=== PATIENT | female | born 1945 | race Caucasian/White ===

== ENCOUNTER 2024-04-30 07:17 | Day surgery (SDC) | payer MEDICARE, OTHER, SELFPAY ==
[2024-04-26 15:18] VITALS: BMI 23.8
[2024-04-30] MEDS: LACTATED RINGERS 1000ML 1,000 ML 25 ML IV (08:00)
[2024-04-30 08:11] VITALS: BP 129/77; PULSE 65; RESP 18; TEMP 36.1; O2SAT 99
--- NOTE | 2024-04-30 08:42 | EXP.ANES.CKL ---
[facility] Disclaimer: The information contained in this section may have been updated after the patient was seen, as this information can be updated by other users. Medical History Thyroid disorder Depression Hyperlipidemia Surgical History History of tubal ligation History of breast biopsy History of knee surgery History of toe surgery Family History Other Family history of CVA Family history of cancer Family history of diabetes mellitus No significant family history Social History Smoking Status: Never smoker alcohol intake: never substance use type: denies use current occupational status: retired Travel in the last 8 weeks: None [facility] Anesthesia Checklist Patient Identification Patient Identification: Arm Band and Verbal (Name & ) Structural Data Admitted From: Home Planned Operative Procedure/s: Colonoscopy Consent for Planned Operative Procedure(s) Verified: Yes Verified Documents: Surgical Consent and History and Physical NPO Status Verified Time NPO: 02:30 (Prep/water) Additional verifications Anesthesia Reactions: No Airway Assessment Mallampati Score:: Class I C-Spine Mobility Assessed: Yes TMJ Mobility Assessed: Yes Dentition: Good Dentition Neurological Assessment Level of Consciousness: Awake Hx Seizures: No Numbness or tingling in extremities: No Anesthesia Plan Anesthesia Risk discussed: Yes Anesthesia Plan: Verified ASA Class: II Anesthesia Type: MAC
--- NOTE | 2024-04-30 08:55 | P.HP_ITS ---
History of Present Illness *Admission Date: 04/30/24 *Reason for visit:: Personal history of adenomatous colon polyps *History of present illness: Mrs. Jimenez is a 79-year-old female who is here for surveillance colonoscopy secondary to personal history of adenomatous colon polyps. Her father had colon cancer presumably in his 60s. The examination is deemed medically necessary for surveillance colonoscopy. The patient has been seen, interviewed and examined prior to the procedure by both myself and the anesthesia provider. [facility] Disclaimer: The information contained in this section may have been updated after the patient was seen, as this information can be updated by other users. Medical History Thyroid disorder Depression Hyperlipidemia Surgical History History of tubal ligation History of breast biopsy History of knee surgery History of toe surgery Family History Other Family history of CVA Family history of cancer Family history of diabetes mellitus No significant family history Social History (Updated 04/30/24 @ 08:42 by Chioma Bishop CRNA) Smoking Status: Never smoker alcohol intake: never substance use type: denies use current occupational status: retired Travel in the last 8 weeks: None Have you lived/traveled outside [place] in past 30 days?: No Contact w/someone who lives/traveled outside [place] past 30 days?: No Exposure to someone with infectious disease in past 14 days?: No Do you have a fever (greater than 100.4 F or 38 C)?: No Have you tested positive for COVID-19: No Exposed to someone with COVID-19 in past 14 days?: No Do you have a sore throat?: No Do you have a cough?: No Do you have any weakness?: No Are you experiencing any nausea/vomitting?: No Do you have any diarrhea?: No Are you experiencing any unusual bleeding?: No Do you have any muscle aches/pain?: No Do you have any abdominal pain?: No Are you experiencing loss of taste or smell?: No Review of Systems Review of Systems Review of systems (narrative): Negative *Cardiovascular Comments: Negative *Gastrointestinal Comments: Negative *Genitourinary Comments: Negative *Musculoskeletal Comments: Negative *Neurologic Comments: Negative Meds Home Medications and Allergies Home Medications ?Medication ?Instructions ?Recorded ?Confirmed ?Type atorvastatin 10 mg tablet 10 mg PO HS 04/26/24 04/26/24 History escitalopram oxalate 5 mg tablet 5 mg PO DAILY 04/26/24 04/26/24 History (Lexapro) methimazole 5 mg tablet 5 mg PO DAILY 04/26/24 04/26/24 History New Prescriptions to Start Prescriptions: Allergies Allergy/AdvReac Type Severity Reaction Status Date / Time erythromycin base Allergy Abdominal Verified 04/30/24 08:08 Pain shellfish derived AdvReac Hives Verified 04/26/24 15:07 Exam Data for Last 24 hours Vital signs and Labs for Last 24 Hours: Temp Pulse Resp BP Pulse Ox O2 Del Method 97.0 F L 65 18 129/77 99 Room Air 04/30/24 08:11 04/30/24 08:11 04/30/24 08:11 04/30/24 08:11 04/30/24 08:11 04/30/24 08:11 *Routine HEENT Exam Head: Present normocephalic Eye: Present EOMI and PERRL ENT: Present mucous membranes moist *Routine Neck Exam Neck: Present supple *Routine Respiratory Exam Respiratory: Present CTA bilaterally *Routine Cardiovascular Exam Cardiovascular: Present RRR *Routine Abdominal Exam Abdominal: Present soft and normoactive bowel sounds; Absent tenderness *Routine Rectal Exam Rectal:: deferred *Routine Genitalia Exam Genitalia:: deferred *Routine Extremities Exam Extremities: Absent cyanosis, clubbing or edema *Routine Skin Exam Skin: Present warm; Absent rash *Routine Neurological Exam Neurological: Present alert and oriented X3 Assessment and Plan *Assessment and plan (1) Personal history of adenomatous and serrated colon polyps: Status: Acute Category: Medical Code(s): Z86.0101 - Personal history of adenomatous and serrated colon polyps (2) Family history of colon cancer in father: Status: Acute Category: Medical Code(s): Z80.0 - Family history of malignant neoplasm of digestive organs Plan A/P: 1. Personal history of adenomatous colon polyps and family history is the preprocedural diagnosis. The patient will be anesthetized/sedated using MAC sedation. The patient has been seen and examined. Cardiac and lung assessment prior to the examination is stable. Proceed with planned surveillance colonoscopy
[2024-04-30 08:59] VITALS: O2SAT 100
--- NOTE | 2024-04-30 09:04 | P.PCN_ITS ---
[facility] Procedure Note Date: 04/30/24 Time: 09:22 Procedure Note:: Colonoscopy Procedure Report: Colonoscopy with cold snare polypectomy Endoscopist: Surjit Tomlinson II, MD Referring physician: Sukhdeep York MD Date of Procedure: April 30, 2024 Equipment: Olympus 190 variable stiffness pediatric colonoscope Sedation: MAC sedation Indication: Mrs. Jimenez is a 79-year-old female who is here for follow-up surveillance colonoscopy secondary to a personal history of adenomatous colon polyps. Her last colonoscopy was 5 years ago and she had 4 polyps (tubular adenomas x 4) removed. Her father had colon cancer presumably in his 60s. She reports no abdominal pain, weight loss, change in her bowel habits or rectal bleeding. Procedure: Prior to the procedure, a history and physical exam was performed, and patient's medications and allergies were reviewed. The risks, benefits and alternatives of the sedation and procedure were discussed with the patient. All questions were answered and informed consent was obtained. The patient was brought to the procedure room. Patient identification and proposed procedure were verified by the physician and the nurse. The patient was placed in a left lateral decubitus position and the scope was passed under direct vision. Throughout the procedure, the patient's blood pressure, pulse, and oxygen saturations were monitored continuously. The colonoscopy was accomplished without difficulty. The patient tolerated the procedure well. Findings: On digital rectal examination there was normal rectal tone. There were no external hemorrhoids. There was mild hemorrhoid prolapse. The colonoscope was introduced through the anal canal to the rectum and advanced to the cecum. The ileocecal valve and appendiceal orifice were identified. The scope was advanced a short distance into the ileum which appeared grossly normal. The scope was then withdrawn into the colon. There were 2 polyps (ascending x 1 (5 mm) and descending x 1 (5 mm)). Both of these were removed via cold snare polypectomy. The remaining cecum, ascending, transverse, descending, sigmoid and rectum were grossly normal. There were no mucosal abnormalities identified. Upon retroflexion within the rectum there were grade 2 internal hemorrhoids.The preparation was excellent throughout with [place] Preparation Score of 9. The cecal time was 12 minutes. Impression: 1. Diminutive colonic polyps x 2 2. Grade 2 internal hemorrhoids Plan: I will follow-up the polyp histology. Based upon age, I am not convinced that she will need any further surveillance. I will discuss the findings with the patient and family.
[2024-04-30 09:24] VITALS: BP 93/54; PULSE 68; RESP 18; TEMP 36.1; O2SAT 96
[2024-04-30 09:39] VITALS: BP 95/56; PULSE 68; RESP 17; RESP 18; TEMP 36.1; O2SAT 96
[2024-04-30 09:49] VITALS: BP 103/82; PULSE 67; RESP 18; TEMP 36.1; O2SAT 96
[2024-04-30 09:59] VITALS: BP 120/70; PULSE 64; RESP 20; O2SAT 97
== END 2024-04-30 09:59 | disposition home or self-care (01) ==
PROVIDERS: PCP Internal Medicine; Visit Provider Internal Medicine Gastroenterology
PROC: (CPT 45385; principal; 2024-04-30 09:00)
DX: K63.5 Polyp of colon (principal); K64.1 Second degree hemorrhoids; Z09 Encounter for follow-up examination after completed treatment for conditions other than malignant neoplasm; Z86.0101 Personal history of adenomatous and serrated colon polyps; Z80.0 Family history of malignant neoplasm of digestive organs
CPT/HCPCS: 45385; 88305; J7120